=== PATIENT | male | born 2000 | race African-American/Black ===

== ENCOUNTER 2022-01-30 12:57 | Emergency (ER) | payer OTHER ==
[~2022-01-30] VITALS: Ht 188 cm; Wt 91.0 kg
[2022-01-30] MEDS ORDERED: DEXAMETHASONE 4MG/ML 1ML VIAL IV ONE (15:15)
[2022-01-30] MEDS ORDERED: DEXAMETHASONE 4MG/ML 1ML VIAL IM ONE (16:00)
[2022-01-30 17:20] VITALS: BP 140/83
== END 2022-01-30 17:45 | disposition home or self-care (01) ==
LOC: ER 12:57
DX: J02.9 Acute pharyngitis, unspecified (principal); R03.0 Elevated blood-pressure reading, without diagnosis of hypertension
CPT/HCPCS: 96372; 99283; J1100